=== PATIENT | male | born 1965 | race Caucasian/White ===

== ENCOUNTER 2019-07-01 08:34 | Outpatient (AMBR) | payer MEDICAID, SELFPAY ==
--- NOTE | 2019-07-01 09:51 | PT.ODAYNRPT ---
PT Outpatient Daily Note Date of Service: July 01, 2019 OP Daily Note Visit Reasons: left shoulder Outpatient Physical Therapy Treatment Date: 07/01/19 Subjective: Some soreness after last visit but no pain Objective: See F/S for therex Assessment: Improving eccentric loading reps with 2lb DB into FF and abduction. Plan: Improve strength of L shoulder Length of Time (minutes) of Treatment: 30 Minutes Office Procedures PT Procedures PT Date of Service: 07/01/19 Therapeutic Exercise 30 minutes: Yes
== END 2019-07-30 23:59 | disposition home or self-care (01) ==
PROVIDERS: PCP Physician Assistant; Referring Provider Physician Assistant; Visit Provider Orthopaedic Surgery Sports Medicine
DX: M25.512 Pain in left shoulder (principal); I10 Essential (primary) hypertension
CPT/HCPCS: 97110

== ENCOUNTER → 2024-12-02 | Outpatient (CLI) | payer MEDICAID, SELFPAY ==
--- NOTE | 2024-12-02 13:21 | XR_ITS ---
EXAMINATION: Ankle, right 3 views . Technique: Ankle AP, oblique, lateral 3 views Date and time of exam: December 02, 2024 1339 hours INDICATIONS: Status post operative reduction internal fixation ankle fracture 1 year ago. FINDINGS: Healed fracture distal fibular shaft with anatomic alignment Mild osteoarthritis tibiotalar joint IMPRESSION: Healed fracture distal fibular shaft with anatomic alignment
== END | disposition home or self-care (01) ==
LOC: CDIM 13:12
PROVIDERS: Referring Provider Orthopaedic Surgery; Visit Provider Orthopaedic Surgery
DX: M25.571 Pain in right ankle and joints of right foot (principal); Z98.890 Other specified postprocedural states; Z87.81 Personal history of (healed) traumatic fracture
CPT/HCPCS: 73610